=== PATIENT | female | born 1950 ===

== ENCOUNTER 2021-09-09 12:57 | Inpatient (IN) | payer MEDICARE ==
[~2021-09-09] VITALS: Ht 160 cm; Wt 70.4 kg
[2021-09-09 14:14] LABS: BASOPHILS % 0.4 % (0.0-1.0); EOSINOPHILS % 0.2 % (0.0-6.0); HEMOGLOBIN 13.8 g/dL (12.0-16.0); LYMPHOCYTES # (AUTO) 0.8 (1.0-3.2); LYMPHOCYTES % 13.5 % (18.0-39.1); MEAN CORPUSCULAR HEMOGLOBIN 30.7 pg (28-32); MEAN CORPUSCULAR HGB CONC 31.4 g/dL (31-35); MEAN CORPUSCULAR VOLUME 97.8 fL (81-99); MONOCYTES # (AUTO) 0.4 (0.2-0.8); MONOCYTES % 6.6 % (4.4-11.3); NEUTROPHILS # (AUTO) 4.4 (2.1-6.9); NEUTROPHILS % 78.9 % (38.7-80.0); PLATELET COUNT 112 x10e3/uL (140-360); RED CELL DISTRIBUTION WIDTH 15.8 % (11.7-14.4)
[2021-09-09 14:27] LABS: INR 0.88; PROTHROMBIN TIME 12.6 seconds (11.9-14.5)
[2021-09-09 14:28] LABS: PARTIAL THROMBOPLASTIN TIME 25.8 seconds (23.8-35.5)
[2021-09-09 14:36] LABS: ALBUMIN 3.4 g/dL (3.5-5.0); ALBUMIN/GLOBULIN RATIO 1.1 (0.8-2.0); ANION GAP 19.6 mmol/L (8-16); CALCIUM 9.9 mg/dL (8.4-10.2); CREATININE, SERUM 2.47 mg/dL (0.57-1.11); MAGNESIUM 1.9 MG/DL (1.3-2.1); POTASSIUM 3.6 mmol/L (3.5-5.1)
[2021-09-09 14:42] LABS: CREATINE KINASE MB 9.1 ng/mL (0-5.0)
[2021-09-09 15:51] LABS: CLARITY,URINE SL CLOUDY (CLEAR); COLOR,URINE AMBER (YELLOW); KETONES,URINE 1+ (NEGATIVE); LEUKOCYTE ESTERASE ,URINE NEGATIVE (NEGATIVE); NITRITE,URINE NEGATIVE (NEGATIVE); PROTEIN,URINE DIPSTICK 2+ (NEGATIVE)
[2021-09-09 15:52] LABS: URINE UROBILINOGEN 0.2 mg/dL (0.2 - 1)
[2021-09-09 16:02] LABS: AMORPHOUS SEDIMENT,URINE MANY (FEW); BACTERIA,URINE FEW /HPF; WBC,URINE (MAN) 0-5 /HPF (0-5)
[2021-09-09] MEDS ORDERED: METHYLPREDNISOLONE SOD SUCC 125 MG/2ML VIAL IV STA (16:27)
[2021-09-09] MEDS ORDERED: SODIUM CHLORIDE 0.9% 1000ML 1,000 ML IV ONE (16:30)
[2021-09-09] MEDS: MEROPENEM 500 MG in SODIUM CHLORIDE 0.9% 50ML 50 ML IV SCH ×2 (16:36→21:09)
[2021-09-09] MEDS: IPRATROPIUM BROMIDE 0.02% 2.5 ML NEB NEB SCH ×3 (17:40→23:35)
[2021-09-09] MEDS: ALBUTEROL SULF 0.083% NEB SOLN 3 ML NEB NEB SCH ×3 (17:40→23:35)
[2021-09-09] MEDS ORDERED: ASPIRIN325 MG PO (18:48)
[2021-09-09] MEDS ORDERED: CLOPIDOGREL75 MG PO (18:48)
[2021-09-09] MEDS ORDERED: FUROSEMIDE40 MG PO (18:48)
[2021-09-09] MEDS ORDERED: FAMOTIDINE20 MG PO (18:48)
[2021-09-09] MEDS ORDERED: TRELEGY ELLIPT1 EACH (18:48)
[2021-09-09] MEDS ORDERED: LEVOTHYROXINE175 MC1 (18:48)
[2021-09-09] MEDS ORDERED: RAMIPRIL5 MG PO (18:48)
[2021-09-09] MEDS ORDERED: CRESTOR10 MG PO (18:48)
[2021-09-09 20:00] VITALS: BP 96/54
[2021-09-09 21:17] VITALS: BP 96/54
[2021-09-10] VITALS (7 sets, daily range): BP systolic 90–102; BP diastolic 56–65
[2021-09-10] MEDS: FUROSEMIDE 40 MG TAB PO SCH ×2 (01:34→08:40)
[2021-09-10] MEDS: ALBUTEROL SULF 0.083% NEB SOLN 3 ML NEB NEB SCH ×3 (03:10→11:00)
[2021-09-10] MEDS: IPRATROPIUM BROMIDE 0.02% 2.5 ML NEB NEB SCH ×3 (03:10→11:00)
[2021-09-10 06:11] LABS: BASOPHILS % 0.2 % (0.0-1.0); HEMATOCRIT 40.3 % (34.2-44.1); HEMOGLOBIN 12.8 g/dL (12.0-16.0); LYMPHOCYTES # (AUTO) 0.6 (1.0-3.2); MEAN CORPUSCULAR HEMOGLOBIN 30.9 pg (28-32); MEAN CORPUSCULAR HGB CONC 31.8 g/dL (31-35); MEAN CORPUSCULAR VOLUME 97.3 fL (81-99); MONOCYTES # (AUTO) 0.1 (0.2-0.8); MONOCYTES % 2.1 % (4.4-11.3); NEUTROPHILS # (AUTO) 5.4 (2.1-6.9); NEUTROPHILS % 87.4 % (38.7-80.0); PLATELET COUNT 118 x10e3/uL (140-360); RED BLOOD COUNT 4.14 x10e6/uL (3.6-5.1); RED CELL DISTRIBUTION WIDTH 15.7 % (11.7-14.4)
[2021-09-10 06:12] LABS: ANION GAP 16.7 mmol/L (8-16); CALCIUM 9.7 mg/dL (8.4-10.2); CREATININE, SERUM 2.66 mg/dL (0.57-1.11); POTASSIUM 3.7 mmol/L (3.5-5.1)
[2021-09-10 06:19] LABS: CREATINE KINASE MB 5.7 ng/mL (0-5.0)
[2021-09-10] MEDS: MEROPENEM 500 MG in SODIUM CHLORIDE 0.9% 50ML 50 ML IV SCH ×2 (08:39→21:18)
[2021-09-10] MEDS: ASPIRIN 325 MG TAB PO SCH (08:40)
[2021-09-10] MEDS: SIMVASTATIN 20 MG TAB PO SCH (08:40)
[2021-09-10] MEDS: CLOPIDOGREL BISULFATE 75 MG TAB PO SCH (08:40)
[2021-09-10] MEDS: FAMOTIDINE 20 MG TAB PO SCH (08:40)
[2021-09-10] MEDS ORDERED: RAMIPRIL 5 MG CAP PO SCH (09:00)
[2021-09-10] MEDS ORDERED: SODIUM CHLORIDE 0.9% IV ONE (12:30)
[2021-09-10] MEDS: METHYLPREDNISOLONE SOD SUCC 125 MG/2ML VIAL IV SCH ×2 (12:47→17:25)
[2021-09-10] MEDS ORDERED: PIPERONYL BUTOXIDE/PYRETHRINS 118 ML SHAMPOO TP ONE (13:45)
[2021-09-10 14:07] LABS: CREATINE KINASE MB 4.6 ng/mL (0-5.0)
[2021-09-10] MEDS: IPRATROPIUM BROMIDE 0.02% 2.5 ML NEB NEB PRN (18:40)
[2021-09-11] VITALS (8 sets, daily range): BP systolic 93–123; BP diastolic 50–82
[2021-09-11 05:47] LABS: BASOPHILS % 0.3 % (0.0-1.0); HEMATOCRIT 37.4 % (34.2-44.1); HEMOGLOBIN 11.7 g/dL (12.0-16.0); LYMPHOCYTES # (AUTO) 0.6 (1.0-3.2); LYMPHOCYTES % 8.1 % (18.0-39.1); MEAN CORPUSCULAR HEMOGLOBIN 30.5 pg (28-32); MEAN CORPUSCULAR HGB CONC 31.3 g/dL (31-35); MEAN CORPUSCULAR VOLUME 97.4 fL (81-99); MONOCYTES # (AUTO) 0.2 (0.2-0.8); MONOCYTES % 2.8 % (4.4-11.3); NEUTROPHILS % 88.4 % (38.7-80.0); PLATELET COUNT 106 x10e3/uL (140-360); RED BLOOD COUNT 3.84 x10e6/uL (3.6-5.1); RED CELL DISTRIBUTION WIDTH 15.7 % (11.7-14.4)
[2021-09-11 06:08] LABS: ALBUMIN 2.9 g/dL (3.5-5.0); ALBUMIN/GLOBULIN RATIO 1.1 (0.8-2.0); ANION GAP 14.7 mmol/L (8-16); CALCIUM 9.1 mg/dL (8.4-10.2); CHOL/HDL RATIO 3.5 (3.0-3.6); CREATININE, SERUM 2.61 mg/dL (0.57-1.11); MAGNESIUM 1.9 MG/DL (1.3-2.1); PHOSPHORUS 2.6 MG/DL (2.3-4.7); POTASSIUM 3.7 mmol/L (3.5-5.1)
[2021-09-11 06:34] LABS: THYROID STIMULATING HORMONE 72.277 uIU/mL (0.350-4.940)
[2021-09-11] MEDS: ASPIRIN 325 MG TAB PO SCH (09:25)
[2021-09-11] MEDS: FAMOTIDINE 20 MG TAB PO SCH (09:25)
[2021-09-11] MEDS: MEROPENEM 500 MG in SODIUM CHLORIDE 0.9% 50ML 50 ML IV SCH ×2 (09:25→20:44)
[2021-09-11] MEDS: CLOPIDOGREL BISULFATE 75 MG TAB PO SCH (09:25)
[2021-09-11] MEDS: SIMVASTATIN 20 MG TAB PO SCH (09:26)
[2021-09-11] MEDS ORDERED: BISACODYL 10 MG SUPP PR PRN (13:15)
[2021-09-11] MEDS ORDERED: SODIUM CHLORIDE 0.9% 1000ML 1,000 ML IV ONE (16:30)
[2021-09-11] MEDS: METHYLPREDNISOLONE SOD SUCC 125 MG/2ML VIAL IV SCH (16:31)
[2021-09-11] MEDS ORDERED: FUROSEMIDE INJ 10 MG/ML 4 ML VIAL IV ONE (18:15)
[2021-09-11] MEDS ORDERED: LINEZOLID 600 MG/D5W 300ML 300 ML IV SCH (23:30)
[2021-09-12] VITALS (8 sets, daily range): BP systolic 122–146; BP diastolic 62–90
[2021-09-12 06:19] LABS: BASOPHILS % 0.3 % (0.0-1.0); HEMATOCRIT 39.6 % (34.2-44.1); HEMOGLOBIN 12.4 g/dL (12.0-16.0); LYMPHOCYTES # (AUTO) 0.8 (1.0-3.2); LYMPHOCYTES % 8.3 % (18.0-39.1); MEAN CORPUSCULAR HGB CONC 31.3 g/dL (31-35); MONOCYTES # (AUTO) 0.3 (0.2-0.8); MONOCYTES % 2.6 % (4.4-11.3); NEUTROPHILS # (AUTO) 8.5 (2.1-6.9); NEUTROPHILS % 87.6 % (38.7-80.0); PLATELET COUNT 141 x10e3/uL (140-360); RED CELL DISTRIBUTION WIDTH 15.5 % (11.7-14.4)
[2021-09-12] MEDS ORDERED: MEROPENEM 500 MG in SODIUM CHLORIDE 0.9% 50ML 50 ML IV SCH (06:30)
[2021-09-12 06:47] LABS: ANION GAP 18.6 mmol/L (8-16); CALCIUM 9.5 mg/dL (8.4-10.2); CREATININE, SERUM 2.88 mg/dL (0.57-1.11); POTASSIUM 3.6 mmol/L (3.5-5.1)
[2021-09-12] MEDS: SIMVASTATIN 20 MG TAB PO SCH (08:46)
[2021-09-12] MEDS: CLOPIDOGREL BISULFATE 75 MG TAB PO SCH (08:46)
[2021-09-12] MEDS: ASPIRIN 325 MG TAB PO SCH (08:46)
[2021-09-12] MEDS: FAMOTIDINE 20 MG TAB PO SCH (08:46)
[2021-09-12] MEDS: BISACODYL 5 MG TAB EC PO SCH (13:12)
[2021-09-12] MEDS: CARVEDILOL 3.125 MG TAB PO SCH (17:11)
[2021-09-12] MEDS: METHYLPREDNISOLONE SOD SUCC 125 MG/2ML VIAL IV SCH (17:12)
[2021-09-12] MEDS: MEROPENEM 500 MG in SODIUM CHLORIDE 0.9% 50ML 50 ML IV SCH (21:15)
[2021-09-13] VITALS (7 sets, daily range): BP systolic 113–141; BP diastolic 70–87
[2021-09-13 05:58] LABS: BASOPHILS # (AUTO) 0.1 (0.0-0.1); BASOPHILS % 0.6 % (0.0-1.0); EOSINOPHILS % 0.2 % (0.0-6.0); HEMATOCRIT 42.6 % (34.2-44.1); HEMOGLOBIN 13.4 g/dL (12.0-16.0); LYMPHOCYTES # (AUTO) 1.2 (1.0-3.2); LYMPHOCYTES % 12.6 % (18.0-39.1); MEAN CORPUSCULAR HEMOGLOBIN 30.7 pg (28-32); MEAN CORPUSCULAR HGB CONC 31.5 g/dL (31-35); MEAN CORPUSCULAR VOLUME 97.7 fL (81-99); MONOCYTES # (AUTO) 0.2 (0.2-0.8); MONOCYTES % 2.5 % (4.4-11.3); NEUTROPHILS # (AUTO) 7.6 (2.1-6.9); NEUTROPHILS % 81.7 % (38.7-80.0); PLATELET COUNT 145 x10e3/uL (140-360); RED BLOOD COUNT 4.36 x10e6/uL (3.6-5.1)
[2021-09-13] MEDS: LEVOTHYROXINE SODIUM 50 MCG TAB PO SCH (06:00)
[2021-09-13] MEDS: GUAIFENESIN 600MG/DEXTROMETHORPHAN 30MG TABSR PO PRN (06:11)
[2021-09-13 06:28] LABS: ANION GAP 15.7 mmol/L (8-16); CALCIUM 9.7 mg/dL (8.4-10.2); CREATININE, SERUM 2.66 mg/dL (0.57-1.11); POTASSIUM 3.7 mmol/L (3.5-5.1)
[2021-09-13] MEDS: MEROPENEM 500 MG in SODIUM CHLORIDE 0.9% 50ML 50 ML IV SCH (08:38)
[2021-09-13] MEDS: FAMOTIDINE 20 MG TAB PO SCH (08:38)
[2021-09-13] MEDS: CARVEDILOL 3.125 MG TAB PO SCH ×3 (08:38→17:54)
[2021-09-13] MEDS: BISACODYL 5 MG TAB EC PO SCH (08:43)
[2021-09-13] MEDS: ASPIRIN 325 MG TAB PO SCH (08:43)
[2021-09-13] MEDS: CLOPIDOGREL BISULFATE 75 MG TAB PO SCH (08:43)
[2021-09-13] MEDS: SIMVASTATIN 20 MG TAB PO SCH (08:44)
[2021-09-13 10:36] LABS: BAND NEUTROPHILS % (MANUAL) 1 %; LYMPHOCYTES % (MANUAL) 15 % (19-48); MONOCYTES % (MANUAL) 1 % (3.4-9.0); NEUTROPHILS % (MANUAL) 80 % (40-74); NUCLEATED RED BLOOD CELLS 1
[2021-09-13 16:18] LABS: ANION GAP 15.8 mmol/L (8-16); CALCIUM 9.3 mg/dL (8.4-10.2); CREATININE, SERUM 2.61 mg/dL (0.57-1.11); POTASSIUM 3.8 mmol/L (3.5-5.1)
[2021-09-13] MEDS: METHYLPREDNISOLONE SOD SUCC 125 MG/2ML VIAL IV SCH (17:50)
[2021-09-13] MEDS: ALBUTEROL SULF 0.083% NEB SOLN 3 ML NEB NEB PRN (19:17)
[2021-09-13] MEDS ORDERED: AMOXICILLIN/CLAVULANATE K 875 MG TAB PO ONE (23:45)
[2021-09-14] VITALS (7 sets, daily range): BP systolic 114–148; BP diastolic 68–97
[2021-09-14] MEDS ORDERED: AMOXICILLIN/CLAVULANATE K 500 MG TAB PO ONE (02:00)
[2021-09-14] MEDS: LEVOTHYROXINE SODIUM 50 MCG TAB PO SCH (05:01)
[2021-09-14] MEDS: CARVEDILOL 3.125 MG TAB PO SCH ×4 (08:00→17:00)
[2021-09-14] MEDS ORDERED: AMOXICILLIN/CLAVULANATE K 500 MG TAB PO SCH (09:00)
[2021-09-14] MEDS: MEROPENEM 500 MG in SODIUM CHLORIDE 0.9% 50ML 50 ML IV SCH ×2 (09:30→21:14)
[2021-09-14] MEDS: BISACODYL 5 MG TAB EC PO SCH (09:30)
[2021-09-14] MEDS: ASPIRIN 325 MG TAB PO SCH (09:30)
[2021-09-14] MEDS: SIMVASTATIN 20 MG TAB PO SCH (09:30)
[2021-09-14] MEDS: FAMOTIDINE 20 MG TAB PO SCH (09:30)
[2021-09-14] MEDS: CLOPIDOGREL BISULFATE 75 MG TAB PO SCH (09:30)
[2021-09-14] MEDS: ALBUTEROL SULF 0.083% NEB SOLN 3 ML NEB NEB PRN (16:30)
[2021-09-14] MEDS: IPRATROPIUM BROMIDE 0.02% 2.5 ML NEB NEB PRN (16:30)
[2021-09-14] MEDS: METHYLPREDNISOLONE SOD SUCC 40 MG/ML VIAL 1ML IV SCH (17:00)
[2021-09-15] VITALS (7 sets, daily range): BP systolic 122–152; BP diastolic 64–98
[2021-09-15] MEDS: LEVOTHYROXINE SODIUM 75 MCG TAB PO SCH (05:59)
[2021-09-15] MEDS: CARVEDILOL 3.125 MG TAB PO SCH ×3 (08:00→17:03)
[2021-09-15 09:01] LABS: BASOPHILS # (AUTO) 0.1 (0.0-0.1); BASOPHILS % 0.6 % (0.0-1.0); HEMATOCRIT 43.1 % (34.2-44.1); HEMOGLOBIN 14.5 g/dL (12.0-16.0); LYMPHOCYTES # (AUTO) 1.1 (1.0-3.2); LYMPHOCYTES % 12.3 % (18.0-39.1); MEAN CORPUSCULAR HGB CONC 33.6 g/dL (31-35); MEAN CORPUSCULAR VOLUME 92.3 fL (81-99); MONOCYTES # (AUTO) 0.4 (0.2-0.8); MONOCYTES % 4.2 % (4.4-11.3); NEUTROPHILS # (AUTO) 6.9 (2.1-6.9); NEUTROPHILS % 78.7 % (38.7-80.0); PLATELET COUNT 177 x10e3/uL (140-360); RED BLOOD COUNT 4.67 x10e6/uL (3.6-5.1); RED CELL DISTRIBUTION WIDTH 14.7 % (11.7-14.4)
[2021-09-15 09:18] LABS: ANION GAP 16.9 mmol/L (8-16); CALCIUM 9.7 mg/dL (8.4-10.2); CREATININE, SERUM 2.17 mg/dL (0.57-1.11); POTASSIUM 3.9 mmol/L (3.5-5.1)
[2021-09-15] MEDS: CLOPIDOGREL BISULFATE 75 MG TAB PO SCH (09:39)
[2021-09-15] MEDS: BISACODYL 5 MG TAB EC PO SCH (09:39)
[2021-09-15] MEDS: SIMVASTATIN 20 MG TAB PO SCH (09:39)
[2021-09-15] MEDS: ASPIRIN 325 MG TAB PO SCH (09:39)
[2021-09-15] MEDS: MEROPENEM 500 MG in SODIUM CHLORIDE 0.9% 50ML 50 ML IV SCH ×2 (09:39→21:28)
[2021-09-15] MEDS: FAMOTIDINE 20 MG TAB PO SCH (09:39)
[2021-09-15] MEDS: METHYLPREDNISOLONE SOD SUCC 40 MG/ML VIAL 1ML IV SCH (17:03)
[2021-09-15] MEDS ORDERED: SODIUM CHLORIDE 0.9% 50ML 50 ML ONE (21:03)
[2021-09-16] VITALS (8 sets, daily range): BP systolic 114–134; BP diastolic 69–82
[2021-09-16 05:41] LABS: BASOPHILS # (AUTO) 0.1 (0.0-0.1); BASOPHILS % 0.7 % (0.0-1.0); HEMATOCRIT 40.8 % (34.2-44.1); LYMPHOCYTES % 11.8 % (18.0-39.1); MEAN CORPUSCULAR HEMOGLOBIN 30.6 pg (28-32); MEAN CORPUSCULAR HGB CONC 31.9 g/dL (31-35); MONOCYTES # (AUTO) 0.4 (0.2-0.8); MONOCYTES % 4.2 % (4.4-11.3); NEUTROPHILS % 79.8 % (38.7-80.0); PLATELET COUNT 160 x10e3/uL (140-360); RED BLOOD COUNT 4.25 x10e6/uL (3.6-5.1); RED CELL DISTRIBUTION WIDTH 14.7 % (11.7-14.4)
[2021-09-16 06:03] LABS: ANION GAP 14.9 mmol/L (8-16); CALCIUM 9.2 mg/dL (8.4-10.2); CREATININE, SERUM 2.07 mg/dL (0.57-1.11); POTASSIUM 3.9 mmol/L (3.5-5.1)
[2021-09-16] MEDS: LEVOTHYROXINE SODIUM 75 MCG TAB PO SCH (06:30)
[2021-09-16] MEDS: CLOPIDOGREL BISULFATE 75 MG TAB PO SCH (09:52)
[2021-09-16] MEDS: ASPIRIN 325 MG TAB PO SCH (09:52)
[2021-09-16] MEDS: CARVEDILOL 3.125 MG TAB PO SCH ×2 (09:52→17:00)
[2021-09-16] MEDS: BISACODYL 5 MG TAB EC PO SCH (09:52)
[2021-09-16] MEDS: SIMVASTATIN 20 MG TAB PO SCH (09:52)
[2021-09-16] MEDS: FAMOTIDINE 20 MG TAB PO SCH (09:52)
[2021-09-16] MEDS: MEROPENEM 500 MG in SODIUM CHLORIDE 0.9% 50ML 50 ML IV SCH ×2 (09:53→22:07)
[2021-09-16] MEDS: METHYLPREDNISOLONE SOD SUCC 40 MG/ML VIAL 1ML IV SCH (17:35)
[2021-09-17] VITALS (9 sets, daily range): BP systolic 106–129; BP diastolic 59–80
[2021-09-17 04:59] LABS: BASOPHILS % 0.5 % (0.0-1.0); HEMATOCRIT 40.6 % (34.2-44.1); HEMOGLOBIN 12.8 g/dL (12.0-16.0); LYMPHOCYTES # (AUTO) 0.8 (1.0-3.2); LYMPHOCYTES % 10.2 % (18.0-39.1); MEAN CORPUSCULAR HEMOGLOBIN 30.7 pg (28-32); MEAN CORPUSCULAR HGB CONC 31.5 g/dL (31-35); MEAN CORPUSCULAR VOLUME 97.4 fL (81-99); MONOCYTES # (AUTO) 0.2 (0.2-0.8); MONOCYTES % 2.4 % (4.4-11.3); NEUTROPHILS # (AUTO) 6.9 (2.1-6.9); NEUTROPHILS % 84.5 % (38.7-80.0); PLATELET COUNT 145 x10e3/uL (140-360); RED BLOOD COUNT 4.17 x10e6/uL (3.6-5.1); RED CELL DISTRIBUTION WIDTH 14.6 % (11.7-14.4)
[2021-09-17 05:17] LABS: ANION GAP 15.9 mmol/L (8-16); CALCIUM 9.7 mg/dL (8.4-10.2); CREATININE, SERUM 2.02 mg/dL (0.57-1.11); POTASSIUM 3.9 mmol/L (3.5-5.1)
[2021-09-17] MEDS: LEVOTHYROXINE SODIUM 75 MCG TAB PO SCH (06:12)
[2021-09-17] MEDS: FAMOTIDINE 20 MG TAB PO SCH (09:11)
[2021-09-17] MEDS: BISACODYL 5 MG TAB EC PO SCH (09:11)
[2021-09-17] MEDS: CLOPIDOGREL BISULFATE 75 MG TAB PO SCH (09:11)
[2021-09-17] MEDS: CARVEDILOL 3.125 MG TAB PO SCH ×2 (09:11→17:00)
[2021-09-17] MEDS: ASPIRIN 325 MG TAB PO SCH (09:11)
[2021-09-17] MEDS: MEROPENEM 500 MG in SODIUM CHLORIDE 0.9% 50ML 50 ML IV SCH ×2 (09:12→21:24)
[2021-09-17] MEDS: SIMVASTATIN 20 MG TAB PO SCH (09:12)
[2021-09-17] MEDS ORDERED: PIPERONYL BUTOXIDE/PYRETHRINS 118 ML SHAMPOO TP SCH (14:00)
[2021-09-17] MEDS: SODIUM CHLORIDE 0.9% 1000ML 1,000 ML IV SCH (17:26)
[2021-09-17] MEDS: METHYLPREDNISOLONE SOD SUCC 40 MG/ML VIAL 1ML IV SCH (17:26)
[2021-09-18] VITALS (7 sets, daily range): BP systolic 109–126; BP diastolic 62–76
[2021-09-18] MEDS: SODIUM CHLORIDE 0.9% 1000ML 1,000 ML IV SCH (05:42)
[2021-09-18] MEDS: LEVOTHYROXINE SODIUM 75 MCG TAB PO SCH (05:45)
[2021-09-18 05:56] LABS: BASOPHILS # (AUTO) 0.1 (0.0-0.1); BASOPHILS % 0.6 % (0.0-1.0); HEMATOCRIT 37.2 % (34.2-44.1); HEMOGLOBIN 11.6 g/dL (12.0-16.0); LYMPHOCYTES # (AUTO) 0.9 (1.0-3.2); LYMPHOCYTES % 9.3 % (18.0-39.1); MEAN CORPUSCULAR HEMOGLOBIN 30.8 pg (28-32); MEAN CORPUSCULAR HGB CONC 31.2 g/dL (31-35); MEAN CORPUSCULAR VOLUME 98.7 fL (81-99); MONOCYTES # (AUTO) 0.2 (0.2-0.8); MONOCYTES % 2.4 % (4.4-11.3); NEUTROPHILS # (AUTO) 8.8 (2.1-6.9); NEUTROPHILS % 86.5 % (38.7-80.0); PLATELET COUNT 114 x10e3/uL (140-360); RED BLOOD COUNT 3.77 x10e6/uL (3.6-5.1); RED CELL DISTRIBUTION WIDTH 14.8 % (11.7-14.4)
[2021-09-18 06:47] LABS: ALBUMIN 2.8 g/dL (3.5-5.0); ANION GAP 17.3 mmol/L (8-16); CALCIUM 9.1 mg/dL (8.4-10.2); CREATININE, SERUM 1.92 mg/dL (0.57-1.11); POTASSIUM 4.3 mmol/L (3.5-5.1)
[2021-09-18] MEDS: CLOPIDOGREL BISULFATE 75 MG TAB PO SCH (09:08)
[2021-09-18] MEDS: SIMVASTATIN 20 MG TAB PO SCH (09:08)
[2021-09-18] MEDS: MEROPENEM 500 MG in SODIUM CHLORIDE 0.9% 50ML 50 ML IV SCH ×2 (09:08→20:49)
[2021-09-18] MEDS: CARVEDILOL 3.125 MG TAB PO SCH ×2 (09:08→16:30)
[2021-09-18] MEDS: ASPIRIN 325 MG TAB PO SCH (09:08)
[2021-09-18] MEDS: BISACODYL 5 MG TAB EC PO SCH (09:08)
[2021-09-18] MEDS: FAMOTIDINE 20 MG TAB PO SCH (09:08)
[2021-09-18] MEDS: GUAIFENESIN 600MG/DEXTROMETHORPHAN 30MG TABSR PO PRN (09:11)
[2021-09-18] MEDS ORDERED: FUROSEMIDE INJ 10 MG/ML 2 ML VIAL IV ONE (16:10)
[2021-09-18] MEDS: METHYLPREDNISOLONE SOD SUCC 40 MG/ML VIAL 1ML IV SCH (16:29)
[2021-09-19] VITALS (8 sets, daily range): BP systolic 108–133; BP diastolic 60–73
[2021-09-19] MEDS: LEVOTHYROXINE SODIUM 75 MCG TAB PO SCH (05:51)
[2021-09-19 06:01] LABS: BASOPHILS % 0.3 % (0.0-1.0); HEMATOCRIT 36.8 % (34.2-44.1); HEMOGLOBIN 11.4 g/dL (12.0-16.0); LYMPHOCYTES # (AUTO) 1.3 (1.0-3.2); LYMPHOCYTES % 12.9 % (18.0-39.1); MEAN CORPUSCULAR HEMOGLOBIN 30.8 pg (28-32); MEAN CORPUSCULAR VOLUME 99.5 fL (81-99); MONOCYTES # (AUTO) 0.2 (0.2-0.8); MONOCYTES % 1.7 % (4.4-11.3); NEUTROPHILS # (AUTO) 8.2 (2.1-6.9); NEUTROPHILS % 83.4 % (38.7-80.0); PLATELET COUNT 130 x10e3/uL (140-360); RED CELL DISTRIBUTION WIDTH 14.8 % (11.7-14.4)
[2021-09-19 06:28] LABS: ALBUMIN 2.9 g/dL (3.5-5.0); ALBUMIN/GLOBULIN RATIO 1.2 (0.8-2.0); ANION GAP 14.8 mmol/L (8-16); CALCIUM 9.6 mg/dL (8.4-10.2); CREATININE, SERUM 1.83 mg/dL (0.57-1.11); POTASSIUM 3.8 mmol/L (3.5-5.1)
[2021-09-19] MEDS: FAMOTIDINE 20 MG TAB PO SCH (09:33)
[2021-09-19] MEDS: SIMVASTATIN 20 MG TAB PO SCH (09:33)
[2021-09-19] MEDS: MEROPENEM 500 MG in SODIUM CHLORIDE 0.9% 50ML 50 ML IV SCH ×2 (09:33→21:28)
[2021-09-19] MEDS: CARVEDILOL 3.125 MG TAB PO SCH ×2 (09:33→17:32)
[2021-09-19] MEDS: ASPIRIN 325 MG TAB PO SCH (09:33)
[2021-09-19] MEDS: BISACODYL 5 MG TAB EC PO SCH (09:33)
[2021-09-19] MEDS: CLOPIDOGREL BISULFATE 75 MG TAB PO SCH (09:33)
[2021-09-19] MEDS: METHYLPREDNISOLONE SOD SUCC 40 MG/ML VIAL 1ML IV SCH (17:32)
[2021-09-19] MEDS ORDERED: SODIUM CHLORIDE 0.9% 50ML 50 ML ONE (20:15)
[2021-09-20] VITALS (8 sets, daily range): BP systolic 104–131; BP diastolic 58–73
[2021-09-20] MEDS: LEVOTHYROXINE SODIUM 75 MCG TAB PO SCH (06:00)
[2021-09-20 06:35] LABS: BASOPHILS % 0.3 % (0.0-1.0); EOSINOPHILS % 0.1 % (0.0-6.0); HEMATOCRIT 37.1 % (34.2-44.1); HEMOGLOBIN 11.5 g/dL (12.0-16.0); LYMPHOCYTES # (AUTO) 1.6 (1.0-3.2); LYMPHOCYTES % 13.6 % (18.0-39.1); MEAN CORPUSCULAR HEMOGLOBIN 30.7 pg (28-32); MEAN CORPUSCULAR VOLUME 99.2 fL (81-99); MONOCYTES # (AUTO) 0.3 (0.2-0.8); MONOCYTES % 2.4 % (4.4-11.3); NEUTROPHILS # (AUTO) 9.7 (2.1-6.9); NEUTROPHILS % 82.1 % (38.7-80.0); PLATELET COUNT 135 x10e3/uL (140-360); RED BLOOD COUNT 3.74 x10e6/uL (3.6-5.1); RED CELL DISTRIBUTION WIDTH 14.8 % (11.7-14.4)
[2021-09-20 07:13] LABS: ANION GAP 13.1 mmol/L (8-16); CALCIUM 9.8 mg/dL (8.4-10.2); CREATININE, SERUM 1.82 mg/dL (0.57-1.11); POTASSIUM 4.1 mmol/L (3.5-5.1)
[2021-09-20] MEDS: BISACODYL 5 MG TAB EC PO SCH (09:25)
[2021-09-20] MEDS: FAMOTIDINE 20 MG TAB PO SCH (09:25)
[2021-09-20] MEDS: ASPIRIN 325 MG TAB PO SCH (09:25)
[2021-09-20] MEDS: MEROPENEM 500 MG in SODIUM CHLORIDE 0.9% 50ML 50 ML IV SCH ×2 (09:26→21:50)
[2021-09-20] MEDS: SIMVASTATIN 20 MG TAB PO SCH (09:26)
[2021-09-20] MEDS: CARVEDILOL 3.125 MG TAB PO SCH ×2 (09:26→17:40)
[2021-09-20] MEDS: CLOPIDOGREL BISULFATE 75 MG TAB PO SCH (09:26)
[2021-09-20] MEDS: METHYLPREDNISOLONE SOD SUCC 40 MG/ML VIAL 1ML IV SCH (17:39)
[2021-09-21] VITALS (8 sets, daily range): BP systolic 106–129; BP diastolic 56–93
[2021-09-21] MEDS: LEVOTHYROXINE SODIUM 75 MCG TAB PO SCH (06:00)
[2021-09-21 06:14] LABS: BASOPHILS % 0.2 % (0.0-1.0); EOSINOPHILS % 0.1 % (0.0-6.0); HEMATOCRIT 40.5 % (34.2-44.1); HEMOGLOBIN 12.3 g/dL (12.0-16.0); LYMPHOCYTES # (AUTO) 1.2 (1.0-3.2); MEAN CORPUSCULAR HGB CONC 30.4 g/dL (31-35); MONOCYTES # (AUTO) 0.2 (0.2-0.8); MONOCYTES % 1.7 % (4.4-11.3); NEUTROPHILS # (AUTO) 9.9 (2.1-6.9); NEUTROPHILS % 86.6 % (38.7-80.0); PLATELET COUNT 124 x10e3/uL (140-360); RED BLOOD COUNT 3.97 x10e6/uL (3.6-5.1); RED CELL DISTRIBUTION WIDTH 14.9 % (11.7-14.4)
[2021-09-21 06:53] LABS: ANION GAP 13.7 mmol/L (8-16); CALCIUM 9.9 mg/dL (8.4-10.2); CREATININE, SERUM 1.76 mg/dL (0.57-1.11); POTASSIUM 4.7 mmol/L (3.5-5.1)
[2021-09-21] MEDS: CARVEDILOL 3.125 MG TAB PO SCH ×2 (10:01→17:00)
[2021-09-21] MEDS: ASPIRIN 325 MG TAB PO SCH (10:02)
[2021-09-21] MEDS: BISACODYL 5 MG TAB EC PO SCH (10:02)
[2021-09-21] MEDS: CLOPIDOGREL BISULFATE 75 MG TAB PO SCH (10:02)
[2021-09-21] MEDS: SIMVASTATIN 20 MG TAB PO SCH (10:02)
[2021-09-21] MEDS: FAMOTIDINE 20 MG TAB PO SCH (10:02)
[2021-09-21] MEDS: MEROPENEM 500 MG in SODIUM CHLORIDE 0.9% 50ML 50 ML IV SCH ×2 (10:02→21:48)
[2021-09-22] VITALS (29 sets, daily range): BP systolic 37–225; BP diastolic 26–119
[2021-09-22 03:43] LABS: ABG HCO3 38 mmol/L (22-26); ABG PCO2 108 mmHg (35-45); ABG PO2 103 mmHg (80-105); ABG TCO2 41
[2021-09-22] MEDS ORDERED: PROPOFOL IV EMULSION 10MG/ML 100 ML ONE (04:01)
[2021-09-22] MEDS ORDERED: ALBUMIN 25% 25GM 100ML 100 ML ONE (04:01)
[2021-09-22] MEDS: PROPOFOL IV EMULSION 10MG/ML 100 ML IV PRN ×3 (04:15→18:34)
[2021-09-22] MEDS ORDERED: ALBUMIN 25% 25GM 100ML 0.25 GM/ML BTL IV ONE ×2 (05:00→09:45)
[2021-09-22] MEDS ORDERED: NOREPINEPHRINE 8 MG/D5W 250 ML 250 ML ONE (05:28)
[2021-09-22] MEDS: LEVOTHYROXINE SODIUM 75 MCG TAB PO SCH (06:00)
[2021-09-22 06:46] LABS: ALBUMIN 2.9 g/dL (3.5-5.0); ALBUMIN/GLOBULIN RATIO 1.5 (0.8-2.0); ANION GAP 15.5 mmol/L (8-16); CALCIUM 9.8 mg/dL (8.4-10.2); CREATININE, SERUM 2.15 mg/dL (0.57-1.11); POTASSIUM 4.5 mmol/L (3.5-5.1)
[2021-09-22 06:58] LABS: HEMATOCRIT 33.9 % (34.2-44.1); HEMOGLOBIN 10.1 g/dL (12.0-16.0); MEAN CORPUSCULAR HGB CONC 29.8 g/dL (31-35); RED BLOOD COUNT 3.26 x10e6/uL (3.6-5.1)
[2021-09-22 06:59] LABS: BASOPHILS % 0.2 % (0.0-1.0); EOSINOPHILS % 0.6 % (0.0-6.0); LYMPHOCYTES # (AUTO) 1.4 (1.0-3.2); LYMPHOCYTES % 11.5 % (18.0-39.1); MONOCYTES # (AUTO) 0.4 (0.2-0.8); MONOCYTES % 3.7 % (4.4-11.3); NEUTROPHILS # (AUTO) 9.9 (2.1-6.9); NEUTROPHILS % 82.6 % (38.7-80.0); PLATELET COUNT 154 x10e3/uL (140-360); RED CELL DISTRIBUTION WIDTH 15.1 % (11.7-14.4)
[2021-09-22 07:00] LABS: EOSINOPHILS # (AUTO) 0.1 (0.0-0.4)
[2021-09-22] MEDS: CLOPIDOGREL BISULFATE 75 MG TAB PO SCH (07:59)
[2021-09-22] MEDS: FAMOTIDINE 20 MG TAB PO SCH (07:59)
[2021-09-22] MEDS: ASPIRIN 325 MG TAB PO SCH (07:59)
[2021-09-22] MEDS: BISACODYL 5 MG TAB EC PO SCH (07:59)
[2021-09-22] MEDS: SIMVASTATIN 20 MG TAB PO SCH (07:59)
[2021-09-22] MEDS: CARVEDILOL 3.125 MG TAB PO SCH (07:59)
[2021-09-22] MEDS: MEROPENEM 500 MG in SODIUM CHLORIDE 0.9% 50ML 50 ML IV SCH ×2 (09:00→21:38)
[2021-09-22 10:10] LABS: ABG HCO3 31 mmol/L (22-26); ABG PCO2 36 mmHg (35-45); ABG PH 7.55 (7.35-7.45); ABG PO2 94 mmHg (80-105); ABG TCO2 32
[2021-09-22] MEDS ORDERED: SODIUM CHLORIDE 0.45% 1,000 ML IV ONE (10:15)
[2021-09-22] MEDS ORDERED: ALBUMIN 25% 25GM 100ML 100 ML IV ONE (10:15)
[2021-09-22] MEDS: NOREPINEPHRINE 8 MG/D5W 250 ML 250 ML IV PRN ×2 (10:34→15:46)
[2021-09-23] VITALS (15 sets, daily range): BP systolic 91–130; BP diastolic 55–80
[2021-09-23] MEDS: NOREPINEPHRINE 8 MG/D5W 250 ML 250 ML IV PRN (00:45)
[2021-09-23] MEDS: PROPOFOL IV EMULSION 10MG/ML 100 ML IV PRN ×2 (00:50→06:36)
[2021-09-23 04:57] LABS: BASOPHILS % 0.2 % (0.0-1.0); EOSINOPHILS # (AUTO) 0.2 (0.0-0.4); EOSINOPHILS % 1.1 % (0.0-6.0); HEMOGLOBIN 9.6 g/dL (12.0-16.0); LYMPHOCYTES # (AUTO) 2.8 (1.0-3.2); LYMPHOCYTES % 21.1 % (18.0-39.1); MEAN CORPUSCULAR HEMOGLOBIN 31.2 pg (28-32); MEAN CORPUSCULAR VOLUME 97.4 fL (81-99); MONOCYTES # (AUTO) 0.7 (0.2-0.8); MONOCYTES % 5.1 % (4.4-11.3); NEUTROPHILS # (AUTO) 9.5 (2.1-6.9); NEUTROPHILS % 71.5 % (38.7-80.0); PLATELET COUNT 146 x10e3/uL (140-360); RED BLOOD COUNT 3.08 x10e6/uL (3.6-5.1); RED CELL DISTRIBUTION WIDTH 14.8 % (11.7-14.4)
[2021-09-23 05:17] LABS: ALBUMIN 3.2 g/dL (3.5-5.0); ALBUMIN/GLOBULIN RATIO 1.7 (0.8-2.0); ANION GAP 16.7 mmol/L (8-16); CALCIUM 9.9 mg/dL (8.4-10.2); CREATININE, SERUM 2.01 mg/dL (0.57-1.11); POTASSIUM 3.7 mmol/L (3.5-5.1)
[2021-09-23] MEDS: LEVOTHYROXINE SODIUM 75 MCG TAB PO SCH (06:06)
[2021-09-23 08:30] LABS: ABG HCO3 32 mmol/L (22-26); ABG PCO2 33 mmHg (35-45); ABG PO2 190 mmHg (80-105); ABG TCO2 33
[2021-09-23] MEDS: CLOPIDOGREL BISULFATE 75 MG TAB PO SCH (09:01)
[2021-09-23] MEDS: BISACODYL 5 MG TAB EC PO SCH (09:01)
[2021-09-23] MEDS: FAMOTIDINE 20 MG TAB PO SCH (09:01)
[2021-09-23] MEDS: ASPIRIN 325 MG TAB PO SCH (09:01)
[2021-09-23] MEDS: MEROPENEM 500 MG in SODIUM CHLORIDE 0.9% 50ML 50 ML IV SCH (09:01)
[2021-09-23] MEDS: SIMVASTATIN 20 MG TAB PO SCH (09:01)
[2021-09-23] MEDS ORDERED: Morphine 2mg Syringe 2 MG/ML SYR IV ONE ×2 (13:15→13:45)
[2021-09-23] MEDS ORDERED: LORAZEPAM INJ 2 MG/ML VIAL IV ONE ×2 (13:15→13:45)
== END 2021-09-23 20:08 | disposition expired | DRG 871 ==
LOC: ER 13:10 → ERHOLD 16:36 → MED/SURG3 18:27 → ICU 09-22 03:07
PROVIDERS: ADMIT Internal Medicine; ATTEND Internal Medicine
PROC: 0BH18EZ Insertion of Endotracheal Airway into Trachea, Via Natural or Artificial Opening Endoscopic (ICD-10-PCS; principal; 2021-09-22)
PROC: 5A1945Z Respiratory Ventilation, 24-96 Consecutive Hours (ICD-10-PCS; 2021-09-22)
PROC: 5A12012 Performance of Cardiac Output, Single, Manual (ICD-10-PCS; 2021-09-22)
DX: A41.9 Sepsis, unspecified organism (principal); J96.21 Acute and chronic respiratory failure with hypoxia; I50.33 Acute on chronic diastolic (congestive) heart failure; J69.0 Pneumonitis due to inhalation of food and vomit; N17.9 Acute kidney failure, unspecified; J44.1 Chronic obstructive pulmonary disease with (acute) exacerbation; I13.0 Hypertensive heart and chronic kidney disease with heart failure and stage 1 through stage 4 chronic kidney disease, or unspecified chronic kidney disease; N18.4 Chronic kidney disease, stage 4 (severe); I25.2 Old myocardial infarction; I25.10 Atherosclerotic heart disease of native coronary artery without angina pectoris; Z85.72 Personal history of non-Hodgkin lymphomas; Z95.5 Presence of coronary angioplasty implant and graft; E78.5 Hyperlipidemia, unspecified; Z74.09 Other reduced mobility; Z20.822 Contact with and (suspected) exposure to COVID-19; E03.9 Hypothyroidism, unspecified; Z66 Do not resuscitate; I46.2 Cardiac arrest due to underlying cardiac condition
CPT/HCPCS: 36415; 36600; 71045; 71046; 71250; 74018; 74230; 76604; 76770; 80048; 80053; 80061; 81001; 82550; 82553; 82805; 82948; 83036; 83735; 83880; 84100; 84439; 84443; 84484; 85025; 85610; 85730; 87040; 87071; 87086; 87205; 92950; 93005; 93306; 94002; 94003; 94640; 94799; 97139; 99251; 99285; J0456; J1940; J2020; J2060; J2185; J2270; J2920; J2930; J7030; J7050; P9047; U0002